=== PATIENT | female | born 1975 | race Caucasian/White ===

== ENCOUNTER 2022-04-20 19:22 | Observation (INO) | payer BC ==
[2022-04-20] MEDS ORDERED: Sodium Chloride 0.9% 10 ML Syringe FLUSH PRN (20:53)
[2022-04-20] MEDS ORDERED: HYDROmorphone 0.5 MG/0.5 ML Syringe IVPUSH PRN ×2 (20:53)
[2022-04-20] MEDS ORDERED: LORazepam 2 MG/ML SDV IV PRN (20:53)
[2022-04-20] MEDS ORDERED: Prochlorperazine 5 MG in Sodium Chloride 0.9% 50 ML IV PRN (21:00)
[2022-04-20] MEDS ORDERED: Lactated Ringers 1,000 ML IV SCH (21:00)
[2022-04-20] MEDS ORDERED: diphenhydrAMINE 50 MG/ML SDV IVPUSH PRN (21:00)
[2022-04-20] MEDS ORDERED: Piperacillin/Tazobactam 4.5 GM in Sodium Chloride 0.9% 100 ML IV ONE (21:30)
[2022-04-20] MEDS: Sodium Chloride 0.9% 10 ML Syringe FLUSH SCH (22:15)
[2022-04-20] MEDS: Acetaminophen 325 MG Tab PO PRN (22:22)
[2022-04-20] MEDS: Heparin Sodium 5,000 Units/ML Vial SUBCUT SCH (23:41)
[2022-04-21] MEDS ORDERED: Piperacillin/Tazobactam 4.5 GM in Sodium Chloride 0.9% 100 ML IV SCH (04:00)
[2022-04-21] MEDS: Heparin Sodium 5,000 Units/ML Vial SUBCUT SCH ×3 (06:34→21:08)
[2022-04-21] MEDS ORDERED: Ondansetron 4 MG/2 ML SDV IVPUSH PRN (07:26)
[2022-04-21] MEDS ORDERED: fentaNYL 100 MCG/2 ML SDV IVPUSH PRN (07:26)
[2022-04-21] MEDS ORDERED: HYDROmorphone 0.5 MG/0.5 ML Syringe IVPUSH PRN (07:26)
[2022-04-21] MEDS ORDERED: Midazolam 1 MG/ML 2 ML SDV ONE (07:30)
[2022-04-21] MEDS ORDERED: Lidocaine 1% 2 ML ONE (07:30)
[2022-04-21] MEDS ORDERED: Propofol 200 MG/20 ML SDV ONE (07:30)
[2022-04-21] MEDS ORDERED: Rocuronium 50 MG/5 ML Vial ONE (07:30)
[2022-04-21] MEDS ORDERED: fentaNYL 100 MCG/2 ML SDV ONE (07:30)
[2022-04-21] MEDS ORDERED: oxyCODONE 5 MG Tab PO PRN (07:39)
[2022-04-21] MEDS ORDERED: Bupivacaine 0.5% 30 ML SDV ONE (08:28)
[2022-04-21] MEDS ORDERED: Lidocaine 1% with EPINEPHrine 1:100,000 20 ML MDV ONE (08:29)
[2022-04-21] MEDS: Sodium Chloride 0.9% 10 ML Syringe FLUSH SCH ×2 (08:37→21:45)
[2022-04-21] MEDS ORDERED: Sugammadex Sodium 200 MG/2 ML VIAL ONE (09:00)
[2022-04-21] MEDS ORDERED: Ketorolac 30 MG/ML SDV ONE (09:59)
[2022-04-21] MEDS ORDERED: Ondansetron 4 MG/2 ML SDV ONE (10:00)
[2022-04-21] MEDS: Ampicillin/Sulbactam Na 3 GM in Sodium Chloride 0.9% 100 ML IV SCH ×2 (13:24→18:31)
[2022-04-21] MEDS: metroNIDAZOLE/Normal Saline 500 MG in Premix Bag 1 BAG IV SCH ×2 (14:14→21:07)
[2022-04-21] MEDS ORDERED: Benzocaine/Cetylpyridinium/Menthol Lozenge MUCMEM PRN (14:21)
[2022-04-21] MEDS: Ketorolac 15 MG/ML SDV IVPUSH SCH ×2 (15:21→21:07)
[2022-04-22] MEDS: Ampicillin/Sulbactam Na 3 GM in Sodium Chloride 0.9% 100 ML IV SCH ×2 (00:07→07:36)
[2022-04-22] MEDS: Ketorolac 15 MG/ML SDV IVPUSH SCH (05:02)
[2022-04-22] MEDS: metroNIDAZOLE/Normal Saline 500 MG in Premix Bag 1 BAG IV SCH (05:03)
[2022-04-22] MEDS: Acetaminophen 325 MG Tab PO PRN (05:04)
[2022-04-22] MEDS: Heparin Sodium 5,000 Units/ML Vial SUBCUT SCH (05:07)
[2022-04-22] MEDS ORDERED: Pantoprazole 40 MG Tab.CR PO SCH (07:45)
[2022-04-22] MEDS: Sodium Chloride 0.9% 10 ML Syringe FLUSH SCH (08:08)
[2022-04-22] MEDS ORDERED: Ibuprofen 600 MG Tab PO SCH (09:00)
== END 2022-04-22 13:58 | disposition home or self-care (01) ==
LOC: JD.MS 19:22 → INTOOBSV 19:22 → JD.MS 19:23
PROVIDERS: ADMIT Surgery; ATTEND Surgery
DX: K35.30 Acute appendicitis with localized peritonitis, without perforation or gangrene (principal); N70.93 Salpingitis and oophoritis, unspecified; Z79.899 Other long term (current) drug therapy; Z90.49 Acquired absence of other specified parts of digestive tract; Z98.890 Other specified postprocedural states; Z88.6 Allergy status to analgesic agent; Z86.16 Personal history of COVID-19
CPT/HCPCS: 44970; 87070; 87075; 87205; 96365; 96366; 96367; 96372; 96375; 96376; A9270; G0378; G0379; J0295; J1644; J1885; J2250; J2405; J2543; J2704; J3010; J3490; J7120; 00840